=== PATIENT | male | born 1970 | race Caucasian/White ===

== ENCOUNTER 2017-06-21 13:43 | Inpatient (IN) | payer OTHER ==
[2017-06-21 17:49] VITALS: BMI 24.4
--- NOTE | 2017-06-21 20:28 | HP ---
CIWA Score - CIWA Score Nausea/Vomitin-No Nausea/No Vomiting Muscle Tremors: 7-Severe,w/o Arm Extended Anxiety: 6 Agitation: 6 Paroxysmal Sweats: 3 Orientation: 2-Disoriented Date<2 days Tacttile Disturbances: 0-None Auditory Disturbances: 0-None Visual Disturbances: 0-None Headache: 2-Mild CIWA-Ar Total Score: 26 Admission ROS BHS - HPI Chief Complaint: c/o of withdrawal sx's from alcohol Allergies/Adverse Reactions: Allergies Allergy/AdvReac Type Severity Reaction Status Date / Time No Known Allergies Allergy Verified 06/21/17 17:56 History of Present Illness: 46 Y.O. MALE WITH LONG HX/O ALCOHOLISM HERE FOR DETOX. 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 REPORTS LONGEST CLEAN TIME 3.5 YEARS WHILE INCARCERATED. Exam Limitations: No Limitations - Ebola screening Have you traveled outside of the country in the last 21 days: No Have you had contact with anyone from an Ebola affected area: No Have you been sick,other than usual withdrawal symptoms: No Do you have a fever: No - Review of Systems Constitutional: Chills, Loss of Appetite, Night Sweats, Changes in sleep EENT: reports: Dental Problems (DENTAL IMPLANTS) Respiratory: reports: No Symptoms reported Cardiac: reports: No Symptoms Reported GI: reports: Diarrhea, Poor Appetite : reports: No Symptoms Reported Musculoskeletal: reports: No Symptoms Reported Integumentary: reports: Other (HEALING ABRASION TO BACK OF R SHOULDER) Neuro: reports: Tremors (FROM ALCOHOL) Endocrine: reports: No Symptoms Reported Hematology: reports: No Symptoms Reported Psychiatric: reports: Anxious, Depressed Other Systems: Reviewed and Negative Patient History - Patient Medical History Hx Anemia: No Hx Asthma: No Hx Chronic Obstructive Pulmonary Disease (COPD): No Hx Cancer: No Hx Cardiac Disorders: No Hx Congestive Heart Failure: No Hx Hypertension: No Hx Hypercholesterolemia: No Hx Pacemaker: No HX Cerebrovascular Accident: No Hx Seizures: No Hx Dementia: No Hx Diabetes: No Hx Gastrointestinal Disorders: No Hx Liver Disease: No Hx Genitourinary Disorders: Yes (HX/ O KIDNEY STONES) Hx Sexually Transmitted Disorders: No Hx Renal Disease (ESRD): No Hx Thyroid Disease: No Hx Human Immunodeficiency Virus (HIV): No Hx Hepatitis C: No Hx Depression: Yes Hx Suicide Attempt: No Hx Bipolar Disorder: No Hx Schizophrenia: No Other Medical History: DENIES - Patient Surgical History Past Surgical History: Yes Hx Genitourinary Surgery: Yes (sx for kidney stones bilateral.) Other Surgical History: Bilateral mandible fx. Anesthesia Reaction: No - PPD History Previous Implant?: Yes Documented Results: Negative w/o proof Implanted On Prior R Admission?: No PPD to be Administered?: Yes - Smoking Cessation Smoking history: Current every day smoker Have you smoked in the past 12 months: Yes Aproximately how many cigarettes per day: 30 Cigars Per Day: 0 Hx Chewing Tobacco Use: No Initiated information on smoking cessation: Yes 'Breaking Loose' booklet given: 06/21/17 - Substance & Tx. History Hx Alcohol Use: Yes Hx Substance Use: Yes Substance Use Type: Alcohol Hx Substance Use Treatment: Yes ([facility]) - Substances Abused Alcohol Route: Oral Frequency: Daily Amount used: 7-8 BEERS/ 1 PINT VODKA Age of first use: 13 Date of Last Use: 06/21/17 Family Disease History - Family Disease History Family Disease History: CA: Mother (BREAST CA, DRUG ADDICITION), Other: Brother (ALCOHOLIC) Admission Physical Exam S - Vital Signs Vital Signs: Vital Signs - 24 hr 06/21/17 17:47 Temperature 97.8 F Pulse Rate 100 H Respiratory 18 Rate Blood Pressure 180/100 - Physical General Appearance: Yes: Appropriately Dressed, Moderate Distress, Tremorous, Anxious HEENTM: Yes: EOMI, Normocephalic, Normal Voice, LIZZETTE, Pharynx Normal, Other ( DENTAL IMPLANTS) Respiratory: Yes: Chest Non-Tender, Lungs Clear, Normal Breath Sounds, No Respiratory Distress, No Accessory Muscle Use Neck: Yes: No masses,lesions,Nodules, Supple, Trachea in good position Breast: Yes: Breast Exam Deferred Cardiology: Yes: Regular Rhythm, S1, S2, Tachycardia Abdominal: Yes: Normal Bowel Sounds, Non Tender, Flat, Soft Genitourinary: Yes: Within Normal Limits Back: Yes: Normal Inspection Musculoskeletal: Yes: full range of Motion, Gait Steady Extremities: Yes: Normal Range of Motion, Non-Tender, Tremors Neurological: Yes: Alert, Motor Strength 5/5 Integumentary: Yes: Normal Color, Moist Lymphatic: Yes: Within Normal Limits - Diagnostic (1) Alcohol dependence with uncomplicated withdrawal Current Visit: Yes Status: Chronic (2) Nicotine dependence Current Visit: Yes Status: Chronic Qualifiers: Nicotine product type: cigarettes Substance use status: uncomplicated Qualified Code(s): F17.210 - Nicotine dependence, cigarettes, uncomplicated Cleared for Admission [facility] - Detox or Rehab [facility] Level of Care: Medically Managed Detox Regimen/Protocol: Librium [facility] Breath Alcohol Content Breath Alcohol Content: 0.050 Urine Drug Screen - Results Drug Screen Negative: Yes
[2017-06-21] MEDS ORDERED: guaiFENesin/D-METHORPHAN HB 10 ML UNIT-DOSE CUPS PO PRN (20:41)
[2017-06-21] MEDS ORDERED: chlordiazePOXIDE HCL 25 MG CAPSULE PO PRN (20:41)
[2017-06-21] MEDS ORDERED: NICOTINE POLACRILEX 4 MG GUM BC PRN (20:41)
[2017-06-21] MEDS ORDERED: ACETAMINOPHEN 325 MG TABLET (FP) PO PRN (20:41)
[2017-06-21] MEDS ORDERED: LOPERAMIDE HCL 2 MG CAPSULE PO PRN (20:41)
[2017-06-21] MEDS ORDERED: MAGNESIUM CITRATE 300 ML BOTTLE PO PRN (20:41)
[2017-06-21] MEDS ORDERED: MAG HYDROX/AL HYDROX/SIMETH 30 ML UNIT-DOSE CUP PO PRN (20:41)
[2017-06-21] MEDS ORDERED: MENTHOL/PHENOL 1 EACH UD MM PRN (20:41)
[2017-06-21] MEDS ORDERED: MAGNESIUM HYDROX 2400MG/30ML ORAL SUSPENSION 30 ML CUP PO PRN (20:41)
[2017-06-21] MEDS ORDERED: P-EPHED 60MG/TRIPROLIDI 2.5MG TABLET PO PRN (20:41)
[2017-06-21] MEDS: cloNIDine HCL 0.1 MG TABLET PO PRN (22:34)
[2017-06-21] MEDS: chlordiazePOXIDE HCL 25 MG CAPSULE PO SCH (22:34)
[2017-06-21] MEDS: THIAMINE HCL 100 MG TABLET (FP) PO SCH (22:34)
[2017-06-22 01:06] LABS: URINE APPEARANCE SLCLOUDY; URINE BILIRUBIN NEGATIVE (NEGATIVE); URINE BLOOD 1+ (NEGATIVE); URINE COLOR YELLOW; URINE GLUCOSE (UA) NEGATIVE (NEGATIVE); URINE KETONE NEGATIVE (NEGATIVE); URINE NITRITE NEGATIVE (NEGATIVE); URINE UROBILINOGEN NEGATIVE mg/dL (0.2-1.0)
[2017-06-22 01:11] LABS: URINE PROTEIN 2+ (NEGATIVE)
[2017-06-22 01:18] LABS: CALCIUM OXALATE CRYSTALS FEW /hpf (NONE SEEN); URINE HYALINE CAST 17 /lpf; URINE MUCUS RARE; URINE RBC 12 /hpf (0-3)
[2017-06-22] MEDS: chlordiazePOXIDE HCL 25 MG CAPSULE PO SCH ×4 (05:53→22:42)
[2017-06-22] MEDS: IBUPROFEN 400 MG TABLET (FP) PO PRN ×2 (09:18→17:34)
[2017-06-22 09:24] LABS: URINE LEUK ESTERASE Negative (NEGATIVE)
[2017-06-22 10:02] LABS: MCH 31.8 pg (25.7-33.7); MCHC 33.6 g/dl (32.0-35.9); MEAN CELL VOLUME 94.6 fl (80-96); MEAN PLT VOLUME 7.4 fl (7.5-11.1); PLATELET COUNT 203 K/MM3 (134-434); RDW 13.6 % (11.9-15.9); WHITE BLOOD COUNT 6.1 K/mm3 (4.0-10.0)
[2017-06-22] MEDS: PRENATAL VITAMINS W/ FOLIC ACID TABLET (FP) PO SCH (10:33)
[2017-06-22] MEDS: cloNIDine HCL 0.1 MG TABLET PO PRN ×2 (10:34→18:08)
[2017-06-22] MEDS: hydrOXYzine PAMOATE 50 MG CAPSULE (FP) PO PRN ×2 (10:35→22:42)
[2017-06-22] MEDS: NICOTINE 21 MG/24 HOURS TOPICAL PATCH TD SCH (10:37)
[2017-06-22 11:27] LABS: ANION GAP 7 (8-16); CO2 33 mmol/L (21-32)
[2017-06-22 11:33] LABS: ALBUMIN 3.6 g/dl (3.4-5.0); ALK PHOS 118 U/L (45-117); BILIRUBIN,TOTAL 0.9 mg/dL (0.2-1.0); CALCIUM 9.1 mg/dL (8.5-10.1); CREATININE 0.8 mg/dL (0.7-1.3); GLUCOSE,RANDOM 73 mg/dL (74-106); SGOT/AST 61 U/L (15-37); SGPT/ALT 55 U/L (12-78); TOT PROT 6.8 g/dl (6.4-8.2)
--- NOTE | 2017-06-22 11:53 | PN ---
S CIWA - CIWA Score Nausea/Vomitin Muscle Tremors: 3 Anxiety: 3 Agitation: 3 Paroxysmal Sweats: 1-Minimal Palms Moist Orientation: 0-Oriented Tacttile Disturbances: 1-Very Mild Itch/Numbness Auditory Disturbances: 1-Very Mild Visual Disturbances: 0-None Headache: 2-Mild CIWA-Ar Total Score: 17 BHS Progress Note (SOAP) Subjective: alert,irritable,anxious,interrupted sleep,tremor,pain in the body Objective: 06/22/17 11:51 Vital Signs Temperature 96.3 F L 06/22/17 10:34 Pulse Rate 87 06/22/17 10:34 Respiratory Rate 18 06/22/17 10:34 Blood Pressure 153/91 06/22/17 10:34 O2 Sat by Pulse Oximetry (%) ekg nsr,normal ecg Laboratory Last Values WBC 6.1 K/mm3 (4.0-10.0) 06/22/17 07:00 RBC 4.34 M/mm3 (4.00-5.60) 06/22/17 07:00 Hgb 13.8 GM/dL (11.7-16.9) 06/22/17 07:00 Hct 41.1 % (35.4-49) 06/22/17 07:00 MCV 94.6 fl (80-96) 06/22/17 07:00 MCH 31.8 pg (25.7-33.7) 06/22/17 07:00 MCHC 33.6 g/dl (32.0-35.9) 06/22/17 07:00 RDW 13.6 % (11.9-15.9) 06/22/17 07:00 Plt Count 203 K/MM3 (134-434) 06/22/17 07:00 MPV 7.4 fl (7.5-11.1) L 06/22/17 07:00 Urine Color Yellow 06/21/17 22:57 Urine Appearance Slcloudy 06/21/17 22:57 Urine pH 5.0 (5.0-8.0) 06/21/17 22:57 Ur Specific [place] 1.017 (1.001-1.035) 06/21/17 22:57 Urine Protein 2+ (NEGATIVE) H 06/21/17 22:57 Urine Glucose (UA) Negative (NEGATIVE) 06/21/17 22:57 Urine Ketones Negative (NEGATIVE) 06/21/17 22:57 Urine Blood 1+ (NEGATIVE) H 06/21/17 22:57 Urine Nitrite Negative (NEGATIVE) 06/21/17 22:57 Urine Bilirubin Negative (NEGATIVE) 06/21/17 22:57 Urine Urobilinogen Negative mg/dL (0.2-1.0) 06/21/17 22:57 Ur Leukocyte Esterase Negative (NEGATIVE) 06/21/17 22:57 Urine RBC 12 /hpf (0-3) 06/21/17 22:57 Urine WBC 2-5 /hpf (3-5) 06/21/17 22:57 Ur Epithelial Cells Rare /hpf (FEW) 06/21/17 22:57 Calcium Oxalate Crystal Few /hpf (NONE SEEN) 06/21/17 22:57 Hyaline Casts 17 /lpf 06/21/17 22:57 Urine Mucus Rare 06/21/17 22:57 Assessment: 06/22/17 11:52 withdrawal symptom Plan: continue detox
[2017-06-22] MEDS ORDERED: FLU VACCINE QUAD 60 MCG/0.5 ML (MDV 17-18) IM ONE (12:00)
--- NOTE | 2017-06-22 16:39 | EKG ---
Test Reason : Blood Pressure : / mmHG Vent. Rate : 089 BPM Atrial Rate : 089 BPM P-R Int : 134 ms QRS Dur : 090 ms QT Int : 342 ms P-R-T Axes : 045 030 052 degrees QTc Int : 416 ms NORMAL SINUS RHYTHM NORMAL ECG NO PREVIOUS ECGS AVAILABLE Confirmed by ADRIENNE SAMANIEGO MD ([id number]) on 06/22/2017 4:39:04 PM Referred By: Jolynn aPrker Confirmed By:ADRIENNE SAMANIEGO MD
[2017-06-22] MEDS: THIAMINE HCL 100 MG TABLET (FP) PO SCH (22:42)
[2017-06-22] MEDS: CYCLOBENZAPRINE HCL 10 MG TABLET (FP) PO PRN (22:42)
[2017-06-23] MEDS: chlordiazePOXIDE HCL 25 MG CAPSULE PO SCH ×3 (05:53→18:02)
[2017-06-23] MEDS: IBUPROFEN 400 MG TABLET (FP) PO PRN (08:54)
--- NOTE | 2017-06-23 10:26 | PN ---
S CIWA - CIWA Score Nausea/Vomitin Muscle Tremors: 3 Anxiety: 3 Agitation: 2 Paroxysmal Sweats: 1-Minimal Palms Moist Orientation: 0-Oriented Tacttile Disturbances: 1-Very Mild Itch/Numbness Auditory Disturbances: 1-Very Mild Visual Disturbances: 0-None Headache: 2-Mild CIWA-Ar Total Score: 16 BHS Progress Note (SOAP) Subjective: alert,irritable,anxious,interrupted sleep,tremor,pain in the body Objective: 06/23/17 10:24 Vital Signs Temperature 96.5 F L 06/23/17 10:17 Pulse Rate 94 H 06/23/17 10:17 Respiratory Rate 18 06/23/17 10:17 Blood Pressure 132/88 06/23/17 10:17 O2 Sat by Pulse Oximetry (%) Laboratory Last Values WBC 6.1 K/mm3 (4.0-10.0) 06/22/17 07:00 RBC 4.34 M/mm3 (4.00-5.60) 06/22/17 07:00 Hgb 13.8 GM/dL (11.7-16.9) 06/22/17 07:00 Hct 41.1 % (35.4-49) 06/22/17 07:00 MCV 94.6 fl (80-96) 06/22/17 07:00 MCH 31.8 pg (25.7-33.7) 06/22/17 07:00 MCHC 33.6 g/dl (32.0-35.9) 06/22/17 07:00 RDW 13.6 % (11.9-15.9) 06/22/17 07:00 Plt Count 203 K/MM3 (134-434) 06/22/17 07:00 MPV 7.4 fl (7.5-11.1) L 06/22/17 07:00 Sodium 139 mmol/L (136-145) 06/22/17 07:00 Potassium 4.5 mmol/L (3.5-5.1) 06/22/17 07:00 Chloride 99 mmol/L (98-107) 06/22/17 07:00 Carbon Dioxide 33 mmol/L (21-32) H 06/22/17 07:00 Anion Gap 7 (8-16) L 06/22/17 07:00 BUN 14 mg/dL (7-18) 06/22/17 07:00 Creatinine 0.8 mg/dL (0.7-1.3) 06/22/17 07:00 Creat Clearance w eGFR > 60 (>60) 06/22/17 07:00 Random Glucose 73 mg/dL (74-106) L 06/22/17 07:00 Calcium 9.1 mg/dL (8.5-10.1) 06/22/17 07:00 Total Bilirubin 0.9 mg/dL (0.2-1.0) 06/22/17 07:00 AST 61 U/L (15-37) H 06/22/17 07:00 ALT 55 U/L (12-78) 06/22/17 07:00 Alkaline Phosphatase 118 U/L (45-117) H 06/22/17 07:00 Total Protein 6.8 g/dl (6.4-8.2) 06/22/17 07:00 Albumin 3.6 g/dl (3.4-5.0) 06/22/17 07:00 Urine Color Yellow 06/21/17 22:57 Urine Appearance Slcloudy 06/21/17 22:57 Urine pH 5.0 (5.0-8.0) 06/21/17 22:57 Ur Specific [place] 1.017 (1.001-1.035) 06/21/17 22:57 Urine Protein 2+ (NEGATIVE) H 06/21/17 22:57 Urine Glucose (UA) Negative (NEGATIVE) 06/21/17 22:57 Urine Ketones Negative (NEGATIVE) 06/21/17 22:57 Urine Blood 1+ (NEGATIVE) H 06/21/17 22:57 Urine Nitrite Negative (NEGATIVE) 06/21/17 22:57 Urine Bilirubin Negative (NEGATIVE) 06/21/17 22:57 Urine Urobilinogen Negative mg/dL (0.2-1.0) 06/21/17 22:57 Ur Leukocyte Esterase Negative (NEGATIVE) 06/21/17 22:57 Urine RBC 12 /hpf (0-3) 06/21/17 22:57 Urine WBC 2-5 /hpf (3-5) 06/21/17 22:57 Ur Epithelial Cells Rare /hpf (FEW) 06/21/17 22:57 Calcium Oxalate Crystal Few /hpf (NONE SEEN) 06/21/17 22:57 Hyaline Casts 17 /lpf 06/21/17 22:57 Urine Mucus Rare 06/21/17 22:57 RPR Titer Nonreactive (NONREACTIVE) 06/22/17 07:00 Assessment: 06/23/17 10:25 withdrawal symptom Plan: continue detox
[2017-06-23] MEDS: PRENATAL VITAMINS W/ FOLIC ACID TABLET (FP) PO SCH (10:48)
[2017-06-23] MEDS: NICOTINE 21 MG/24 HOURS TOPICAL PATCH TD SCH (10:48)
[2017-06-23] MEDS: cloNIDine HCL 0.1 MG TABLET PO PRN (18:01)
[2017-06-23] MEDS: hydrOXYzine PAMOATE 50 MG CAPSULE (FP) PO PRN ×2 (18:03→22:10)
[2017-06-23] MEDS: chlordiazePOXIDE 5 MG CAPSULE PO SCH (22:10)
[2017-06-23] MEDS: THIAMINE HCL 100 MG TABLET (FP) PO SCH (22:10)
[2017-06-23] MEDS: CYCLOBENZAPRINE HCL 10 MG TABLET (FP) PO PRN (22:10)
[2017-06-24] MEDS: chlordiazePOXIDE 5 MG CAPSULE PO SCH ×3 (05:53→17:35)
[2017-06-24] MEDS: hydrOXYzine PAMOATE 50 MG CAPSULE (FP) PO PRN (10:44)
[2017-06-24] MEDS: PRENATAL VITAMINS W/ FOLIC ACID TABLET (FP) PO SCH (10:44)
[2017-06-24] MEDS: CYCLOBENZAPRINE HCL 10 MG TABLET (FP) PO PRN ×2 (10:44→22:22)
[2017-06-24] MEDS: cloNIDine HCL 0.1 MG TABLET PO PRN ×2 (10:44→17:35)
[2017-06-24] MEDS: NICOTINE 21 MG/24 HOURS TOPICAL PATCH TD SCH (10:45)
--- NOTE | 2017-06-24 11:27 | PN ---
S Progress Note (SOAP) Subjective: alert,irritable,,interrupted sleep, Objective: 06/24/17 11:26 Vital Signs Temperature 97.7 F 06/24/17 06:19 Pulse Rate 70 06/24/17 06:19 Respiratory Rate 18 06/24/17 06:19 Blood Pressure 150/96 06/24/17 06:19 O2 Sat by Pulse Oximetry (%) 06/24/17 11:26 Laboratory Last Values WBC 6.1 K/mm3 (4.0-10.0) 06/22/17 07:00 RBC 4.34 M/mm3 (4.00-5.60) 06/22/17 07:00 Hgb 13.8 GM/dL (11.7-16.9) 06/22/17 07:00 Hct 41.1 % (35.4-49) 06/22/17 07:00 MCV 94.6 fl (80-96) 06/22/17 07:00 MCH 31.8 pg (25.7-33.7) 06/22/17 07:00 MCHC 33.6 g/dl (32.0-35.9) 06/22/17 07:00 RDW 13.6 % (11.9-15.9) 06/22/17 07:00 Plt Count 203 K/MM3 (134-434) 06/22/17 07:00 MPV 7.4 fl (7.5-11.1) L 06/22/17 07:00 Sodium 139 mmol/L (136-145) 06/22/17 07:00 Potassium 4.5 mmol/L (3.5-5.1) 06/22/17 07:00 Chloride 99 mmol/L (98-107) 06/22/17 07:00 Carbon Dioxide 33 mmol/L (21-32) H 06/22/17 07:00 Anion Gap 7 (8-16) L 06/22/17 07:00 BUN 14 mg/dL (7-18) 06/22/17 07:00 Creatinine 0.8 mg/dL (0.7-1.3) 06/22/17 07:00 Creat Clearance w eGFR > 60 (>60) 06/22/17 07:00 Random Glucose 73 mg/dL (74-106) L 06/22/17 07:00 Calcium 9.1 mg/dL (8.5-10.1) 06/22/17 07:00 Total Bilirubin 0.9 mg/dL (0.2-1.0) 06/22/17 07:00 AST 61 U/L (15-37) H 06/22/17 07:00 ALT 55 U/L (12-78) 06/22/17 07:00 Alkaline Phosphatase 118 U/L (45-117) H 06/22/17 07:00 Total Protein 6.8 g/dl (6.4-8.2) 06/22/17 07:00 Albumin 3.6 g/dl (3.4-5.0) 06/22/17 07:00 Urine Color Yellow 06/21/17 22:57 Urine Appearance Slcloudy 06/21/17 22:57 Urine pH 5.0 (5.0-8.0) 06/21/17 22:57 Ur Specific [place] 1.017 (1.001-1.035) 06/21/17 22:57 Urine Protein 2+ (NEGATIVE) H 06/21/17 22:57 Urine Glucose (UA) Negative (NEGATIVE) 06/21/17 22:57 Urine Ketones Negative (NEGATIVE) 06/21/17 22:57 Urine Blood 1+ (NEGATIVE) H 06/21/17 22:57 Urine Nitrite Negative (NEGATIVE) 06/21/17 22:57 Urine Bilirubin Negative (NEGATIVE) 06/21/17 22:57 Urine Urobilinogen Negative mg/dL (0.2-1.0) 06/21/17 22:57 Ur Leukocyte Esterase Negative (NEGATIVE) 06/21/17 22:57 Urine RBC 12 /hpf (0-3) 06/21/17 22:57 Urine WBC 2-5 /hpf (3-5) 06/21/17 22:57 Ur Epithelial Cells Rare /hpf (FEW) 06/21/17 22:57 Calcium Oxalate Crystal Few /hpf (NONE SEEN) 06/21/17 22:57 Hyaline Casts 17 /lpf 06/21/17 22:57 Urine Mucus Rare 06/21/17 22:57 RPR Titer Nonreactive (NONREACTIVE) 06/22/17 07:00 Assessment: 06/24/17 11:26 withdrawal symptom Plan: continue detox,discharge in am
[2017-06-24] MEDS ORDERED: CYCLOBENZAPRINE HCL 10 MG TABLET (FP) PO ONE (13:22)
--- NOTE | 2017-06-24 14:24 | CONSULT ---
[facility] Psychiatric Consult - Data Date of interview: 06/24/17 Admission source: [facility] Identifying data: First admission to [facility] for this 46 y/o male seeking detox treatment on for alcohol dependence.Patient is single, father of one,domiciled and currently employed. Substance Abuse History: Mr Farias endorses active use of alcohol as described in the following [facility] report,. Smoking history: Current every day smoker. Have you smoked in the past 12 months: Yes. Aproximately how many cigarettes per day: 30. Cigars Per Day: 0. Hx Chewing Tobacco Use: No. Initiated information on smoking cessation: Yes. 'Breaking Loose' booklet given : 06/21/17. - Substance & Tx. History. Hx Alcohol Use: Yes. Hx Substance Use : Yes. Substance Use Type: Alcohol. Hx Substance Use Treatment: Yes ([facility]). - Substances Abused. Alcohol. Route: Oral. Frequency: Daily. Amount used: 7 -8 BEERS/ 1 PINT VODKA. Age of first use: 13. Date of Last Use: 06/21/17 Medical History: Consistent with a history of nephrolithiasis. Psychiatric History: Patient denies history of psychiatric hospitalizations.Used to be prescribed sertraline 25 mg/day by his primary care physician (depression).Mr Farias denies having any psychiatric issue other than alcohol dependence.No history of suicide attempts. Physical/Sexual Abuse/Trauma History: No reported history of abuse. Additional Comment: Drug Screen is negative. Mental Status Exam - Mental Status Exam Alert and Oriented to: Time, Place Cognitive Function: Good Patient Appearance: Well Groomed Mood: Hopeful, Euthymic Affect: Appropriate, Normal Range Patient Behavior: Appropriate (pleasant and friendly), Cooperative Speech Pattern: Clear, Appropriate Voice Loudness: Normal Thought Process: Intact, Goal Oriented Thought Disorder: Not Present Hallucinations: Denies Suicidal Ideation: Denies Homicidal Ideation: Denies Insight/Judgement: Poor Sleep: Well Appetite: Good Muscle strength/Tone: Normal Gait/Station: Normal Psychiatric Findings - Problem List ([place] 1, 2,3) (1) Alcohol dependence with uncomplicated withdrawal Current Visit: Yes Status: Acute (2) Nicotine dependence Current Visit: Yes Status: Acute Qualifiers: Nicotine product type: cigarettes Substance use status: uncomplicated Qualified Code(s): F17.210 - Nicotine dependence, cigarettes, uncomplicated - Initial Treatment Plan Initial Treatment Plan: Psychoeducation.Detoxification.Observation.
[2017-06-24] MEDS: THIAMINE HCL 100 MG TABLET (FP) PO SCH (22:22)
[2017-06-24] MEDS: chlordiazePOXIDE HCL 10 MG CAPSULE PO SCH (22:22)
[2017-06-24] MEDS: IBUPROFEN 400 MG TABLET (FP) PO PRN (22:23)
[2017-06-25] MEDS: chlordiazePOXIDE HCL 10 MG CAPSULE PO SCH (05:24)
[2017-06-25] MEDS: cloNIDine HCL 0.1 MG TABLET PO PRN (07:12)
--- NOTE | 2017-06-25 08:59 | DS ---
[facility] Detox Discharge Summary Admission Date: 06/21/17 Discharge Date: 06/25/17 - History Present History: Alcohol Dependence Additional Comments: follow up with after care program as arrangement Pertinent Past History: nicotine dependence - Physical Exam Results Vital Signs: Vital Signs Temperature 97 F L 06/25/17 07:21 Pulse Rate 65 06/25/17 07:21 Respiratory Rate 16 06/25/17 07:21 Blood Pressure 152/96 06/25/17 07:21 O2 Sat by Pulse Oximetry (%) Pertinent Admission Physical Exam Findings: withdrawal symptom - Treatment Hospital Course: Detox Protocol Followed, Detoxed Safely, Responded well, Discharged Condition Good, Rehab Referral Accepted Patient has Accepted a Rehab Referral to: [facility] - Medication Discharge Medications: Ambulatory Orders Sertraline HCl [Zoloft -] 25 mg PO DAILY 06/21/17 - Diagnosis (1) Alcohol dependence with uncomplicated withdrawal Current Visit: Yes Status: Acute (2) Nicotine dependence Current Visit: Yes Status: Acute Qualifiers: Nicotine product type: cigarettes Substance use status: uncomplicated Qualified Code(s): F17.210 - Nicotine dependence, cigarettes, uncomplicated - AMA Did Patient Leave Against Medical Advice: No
[2017-06-25] MEDS: PRENATAL VITAMINS W/ FOLIC ACID TABLET (FP) PO SCH (09:15)
[2017-06-25 10:20] VITALS: BP 156/109; PULSE 101; TEMP 97.3
== END 2017-06-25 09:22 | disposition home or self-care (01) | DRG 775 ==
LOC: YASAS 13:43 → Y6N 18:48
PROVIDERS: ADMIT Internal Medicine; ATTEND Internal Medicine
PROC: HZ2ZZZZ Detoxification Services for Substance Abuse Treatment (ICD-10-PCS; principal; 2017-06-21)
DX: F10.230 Alcohol dependence with withdrawal, uncomplicated (principal); F17.210 Nicotine dependence, cigarettes, uncomplicated; Z87.442 Personal history of urinary calculi
CPT/HCPCS: 36415; 80053; 81003; 81015; 85027; 86593; 90688; 93005; 93010; G0008